=== PATIENT | male | born 1990 | race Hispanic/Latino ===

== ENCOUNTER 2024-06-30 00:37 | Emergency (ER) | payer SELFPAY ==
[~2024-06-30] VITALS: Ht 162.6 cm; Wt 72.6 kg
[2024-06-30 00:59] VITALS: TEMP 97.4
--- NOTE | 2024-06-30 00:59 | NUR ---
PT CARE ASSUMED AT THIS TIME
--- NOTE | 2024-06-30 01:04 | ERN ---
General Chief Complaint: Abdominal Pain Stated Complaint: ABD / FLANK PAIN Time Seen by MD: 00:40 Source: patient, family History of Present Illness Initial Comments 33-year-old male who has had nausea and vomiting for about a week. He went to [place] to get some antibiotics, he does not know what they were called, and the antibiotics did not improve his symptoms. He has continued to have diffuse abdominal pain. He points to every single section of his abdomen and his esophagus. No fever or chills. No diarrhea. No problems urinating. He feels his mouth is dry. When asked about medical problems he says maybe high blood pressure and maybe high glucose. He has measured his blood sugars with the machine and they have been 250. He does not know how high his blood pressure is. Timing/Duration: 1 week Allergies: Coded Allergies: No Known Allergies (Unverified Allergy, Unknown, 06/30/24) Past Medical History Past Medical History: No Pertinent History, Hypertension Medical History Other: No medications but I suspect patient has diabetes and high blood pressure. Past Surgical History: None ROS Dictation Review of systems is otherwise negative from what is in the HPI. Patient has none of the following: Mental status changes decreased visual changes no lightheadedness no difficulty eating no change in bowel habits no problem urinating no chest pain no difficulty breathing no numbness or tingling. Able to move all his extremities. Physical Exam General Appearance: (+) mild distress Orientation: (+) alert Head/Face Trauma: No Eye: bilateral eye normal inspection, bilateral eye PERRL, bilateral eye EOMI Ear, Nose, Throat: (+) hearing grossly normal, (+) normal ENT inspection, (+) moist mucous membraine, (+) normal pharynx Neck: (+) normal inspection, (+) supple, (+) full range of motion Respiratory: (+) chest non-tender, (+) lungs clear, (+) well ventilated Heart: (+) regular, (+) no gallop Vascular: (+) no edema, (+) normal peripheral pulse, (+) no JVD Gastrointestinal: (+) soft, (+) non-tender, (+) no organomegaly, (+) bowel sound present Gastrointestinal Comment Patient does have abdominal tenderness. Especially in the bilateral lower quadrants. The tenderness is worse when he is lifting his head up off the bed and reproducibly decreases in pain when he relaxes. Bowel sounds are hyperactive. Back: (+) normal inspection, (+) no CVA tenderness Results Laboratory and Microbiology Lab and Micro Result Laboratory Tests Test 06/30/24 00:59 06/30/24 01:24 06/30/24 02:31 06/30/24 02:48 White Blood Count 10.7 K/uL (4.8-10.8) Red Blood Count 5.38 MIL/uL (4.50-6.20) Hemoglobin 16.5 g/dL (14.0-18.0) Hematocrit 46.8 % (42-54) Mean Corpuscular Volume 87.0 fL (79-99) Mean Corpuscular Hemoglobin 30.7 pg (27.0-33.0) Mean Corpuscular Hemoglobin Concent 35.3 g/dL (32.0-36.0) Red Cell Distribution Width 12.9 % (11.0-15.5) Platelet Count 455 K/uL (130-400) H Mean Platelet Volume 9.2 fL (7.5-10.5) Immature Granulocyte % (Auto) 0.3 % (0-1) Neutrophils (%) (Auto) 74.9 % (40.0-77.0) Lymphocytes (%) (Auto) 13.5 % (21.0-51.0) L Monocytes (%) (Auto) 10.0 % (3.0-13.0) Eosinophils (%) (Auto) 0.8 % (0.0-8.0) Basophils (%) (Auto) 0.5 % (0.0-5.0) Neutrophils # (Auto) 8.0 K/uL (1.8-7.7) H Lymphocytes # (Auto) 1.4 K/uL (1.0-4.8) Monocytes # (Auto) 1.1 K/uL (0.1-1.0) H Eosinophils # (Auto) 0.09 K/uL (0.00-0.70) Basophils # (Auto) 0.05 K/uL (0.00-0.20) Absolute Immature Granulocyte (auto 0.03 K/uL (0-1) Nucleated Red Blood Cells 0.0 % (0.0-0.19) Sodium Level 140 mmol/L (136-145) Potassium Level 3.5 mmol/L (3.5-5.1) Chloride Level 101 mmol/L (101-111) Carbon Dioxide Level 29 mmol/L (21-32) Blood Urea Nitrogen 18 mg/dL (7-18) Creatinine 1.3 mg/dL (0.5-1.3) Glomerular Filtration Rate Calc 75 mL/min (>90) Random Glucose 285 mg/dL (70-105) H Hemoglobin A1c 9.3 % (4.0-6.0) H Estimated Average Glucose (eAG) 220 mg/dL (70-126) H Whole Blood Ketones Quantitative 0.3 mmol/L (0.0-0.6) Total Calcium 8.2 mg/dL (8.5-10.1) L Total Bilirubin 0.2 mg/dL (0.2-1.0) Aspartate Amino Transf (AST/SGOT) 29 U/L (10-37) Alanine Aminotransferase (ALT/SGPT) 36 U/L (12-78) Alkaline Phosphatase 113 U/L (50-136) Total Protein 5.7 g/dL (6.0-8.3) L Albumin 1.5 g/dL (3.5-5.0) L Whole Blood Glucose 258 MG/DL (70-110) H 200 MG/DL (70-110) H Urine Color COLORLESS (YELLOW) Urine Appearance CLEAR (CLEAR) Urine pH 7.5 (5.0-8.0) Urine Specific [place] 1.004 (1.001-1.031) Urine Protein 200 mg/dL (NEGATIVE) H Urine Glucose (UA) 200 mg/dL (NEGATIVE) H Urine Ketones NEGATIVE mg/dL (NEGATIVE) Urine Occult Blood NEGATIVE (NEGATIVE) Urine Nitrate NEGATIVE (NEGATIVE) Urine Bilirubin NEGATIVE mg/dL (NEGATIVE) Urine Urobilinogen 0.2 mg/dL (0.2-1.0) Urine Leukocyte Esterase NEGATIVE Ellie/uL Urine RBC 0-1 /HPF (0-1) Urine WBC 2-5 /HPF (0-1) H Urine Bacteria RARE /HPF (None Seen) Test 06/30/24 03:09 Whole Blood Glucose 183 MG/DL (70-110) H MDM Patient's complaints are relatively nonspecific. I do believe he is dehydrated. He may have gastroenteritis he may have diabetes and hyperglycemia causing dehydration. I will bolus him some fluid I will check his labs including ketone bodies. I will check his urine as well. At this point I do not feel a need to do a CT scan of his abdomen. Patient states he feels much better after receiving 2 L of fluid. UA is negative except for glucosuria. CBC and chemistry panel are normal except for increased platelets and possibly increased creatinine. The patient has consistently had elevated blood pressure while he has been in the emergency room with a systolic of 160. I told the patient and his friend that he absolutely positively needs to see a doctor. He has diabetes he has high blood pressure and they are both affecting his kidney. ED Course Orders Procedure Category Date Status Time Cbc With Differential LAB 06/30/24 Complete 01:04 O2 Nc Keep Sats CPOE 06/30/24 Transmitted Greater 92% 01:04 Comprehensive LAB 06/30/24 Complete Metabolic Panel 01:04 Urinalysis Profile LAB 06/30/24 Complete 01:04 Lactated Ringers PHA 06/30/24 Complete 1000ml (Lactated 01:04 Ondansetron 4mg Inj PHA 06/30/24 Complete (Zofran 4mg Inj) 01:30 Ketone Blood LAB 06/30/24 Complete Quantitative 01:04 Bedside Glucose CPOE 06/30/24 Transmitted Fingerstick 01:09 Insulin Regular, PHA 06/30/24 Complete Human 3ml (Humulin R 02:00 Hemoglobin A1c LAB 06/30/24 Complete 01:34 Insulin Regular, PHA 06/30/24 Complete Human 3ml (Humulin R 02:00 0.9%Nacl 1000ml (Ns PHA 06/30/24 Complete 1000ml) 02:30 Ketorolac PHA 06/30/24 Complete Tromethamine 15mg/Ml 03:00 Bedside Glucose CPOE 06/30/24 Transmitted Fingerstick 03:04 Current Medications Medications (Trade) Dose Ordered Sig/Ean Route PRN Reason Start Time Stop Time Status Last Admin Dose Admin Insulin Human Regular (humuLIN R 100 UNIT/ML 3ML) 15 unit ONCE ONCE SQ 06/30/24 02:00 06/30/24 02:01 DC 06/30/24 01:54 Insulin Human Regular (humuLIN R 100 UNIT/ML 3ML) 25 unit ONCE ONCE SQ 06/30/24 02:00 06/30/24 01:49 DC Ketorolac Tromethamine (toRADol) 15 mg ONCE ONCE IV 06/30/24 03:00 06/30/24 03:01 DC 06/30/24 02:39 Lactated Ringer's 1,000 ml @ 0 mls/hr ONCE STAT IV 06/30/24 01:04 06/30/24 01:11 DC 06/30/24 01:35 Ondansetron HCl (zoFRAN 4MG INJ) 4 mg ONCE ONCE IVP 06/30/24 01:30 06/30/24 01:31 DC 06/30/24 01:35 Sodium Chloride 1,000 ml @ 0 mls/hr ONCE ONCE IV 06/30/24 02:30 06/30/24 02:31 DC 06/30/24 02:32 Vital Signs Date Time Temp Pulse Resp B/P (MAP) Pulse Ox O2 Delivery O2 Flow Rate FiO2 06/30/24 03:01 60 16 159/86 100 Room Air* 0 21 06/30/24 01:31 75 17 169/86 100 Room Air* 0 21 06/30/24 00:59 97.3 60 17 189/91 99 Room Air* 0 21 06/30/24 00:38 97.9 57 20 163/95 100 Room Air DX & DISP Disposition: Discharge Departure Impression: Primary Impression: DM (diabetes mellitus) Additional Impression: Dehydration Condition: Stable Additional Instructions: Patient must get his blood pressure in his diabetes under control. He needs to see a doctor. Referrals: SELF,REFERRAL (PCP) KELLI CHRISTINA MD Jun 30, 2024 01:04
[2024-06-30 01:16] LABS: BASOPHILS # (AUTO) 0.05 K/uL (0.00-0.20); BASOPHILS % (AUTO) 0.5 % (0.0-5.0); EOSINOPHILS # (AUTO) 0.09 K/uL (0.00-0.70); EOSINOPHILS % (AUTO) 0.8 % (0.0-8.0); HEMATOCRIT 46.8 % (42-54); IMMATURE GRANULOCYTE ABSOLUTE 0.03 K/uL (0-1); LYMPHOCYTES # (AUTO) 1.4 K/uL (1.0-4.8); LYMPHOCYTES % (AUTO) 13.5 % (21.0-51.0); MEAN CORPUSCULAR HEMOGLOBIN 30.7 pg (27.0-33.0); MEAN CORPUSCULAR HGB CONC 35.3 g/dL (32.0-36.0); MONOCYTES # (AUTO) 1.1 K/uL (0.1-1.0); NEUTROPHILS % (AUTO) 74.9 % (40.0-77.0); PLATELET COUNT (AUTO) 455 K/uL (130-400); RED BLOOD CELL COUNT(AUTO) 5.38 MIL/uL (4.50-6.20); RED CELL DISTRIBUTION WIDTH 12.9 % (11.0-15.5); WHITE BLOOD COUNT (AUTO) 10.7 K/uL (4.8-10.8)
[2024-06-30 01:29] LABS: CREATININE 1.3 mg/dL (0.5-1.3); POTASSIUM 3.5 mmol/L (3.5-5.1)
[2024-06-30 01:33] LABS: ALBUMIN 1.5 g/dL (3.5-5.0); BILIRUBIN,TOTAL 0.2 mg/dL (0.2-1.0); TOTAL PROTEIN, SERUM 5.7 g/dL (6.0-8.3)
[2024-06-30] MEDS: LACTATED RINGERS 1000ML 1,000 ML IV STA (01:35)
[2024-06-30] MEDS: ondanSETRON 4MG INJ IVP ONE (01:35)
[2024-06-30] MEDS: INSULIN humuLIN R 100 UNIT/ML 3ML SQ ONE (01:54)
[2024-06-30] MEDS ORDERED: INSULIN humuLIN R 100 UNIT/ML 3ML SQ ONE (02:00)
[2024-06-30 02:12] LABS: HEMOGLOBIN A1C 9.3 % (4.0-6.0)
[2024-06-30] MEDS: 0.9%NACL 1000ML 1,000 ML IV ONE (02:32)
[2024-06-30] MEDS: ketOROlac 15MG/ML VIAL (15MG/ML) IV ONE (02:39)
[2024-06-30 02:56] LABS: APPEARANCE,URINE CLEAR (CLEAR); BILIRUBIN,URINE NEGATIVE (NEGATIVE); COLOR,URINE COLORLESS (YELLOW); GLUCOSE, URINE (UA) 200 mg/dL (NEGATIVE); KETONES,URINE NEGATIVE (NEGATIVE); LEUKOCYTE ESTERASE ,URINE NEGATIVE Leu/uL (NEGATIVE); NITRATE,URINE NEGATIVE (NEGATIVE); OCCULT BLOOD,URINE NEGATIVE (NEGATIVE); PH,URINE 7.5 (5.0-8.0); PROTEIN,URINE 200 mg/dL (NEGATIVE); UROBILINOGEN,URINE 0.2 mg/dL (0.2-1.0)
[2024-06-30 02:57] LABS: ADD UA MICROSCOPIC YES; BACTERIA,URINE RARE /HPF (None Seen); RBC,URINE 0-1 /HPF (0-1)
[2024-06-30 03:36] VITALS: BP 160/80; PULSE 66; RESP 16; O2SAT 100
== END 2024-06-30 03:38 | disposition home or self-care (01) ==
LOC: EDH 00:37
DX: E86.0 Dehydration (principal); E11.9 Type 2 diabetes mellitus without complications
CPT/HCPCS: 99285; 96374; 96375; 83036; 80053; 85025; 82948 ×3; 82010; 81001; 36415; 96372; J1815; J1885; J7120; J2405